=== PATIENT | female | born 1980 | race Caucasian/White ===

== ENCOUNTER → 2018-06-19 12:33 | Outpatient (CLI) | payer OTHER, SELFPAY | PROVIDERS: PCP Family Medicine; Visit Provider Obstetrics & Gynecology | DX: N93.9 Abnormal uterine and vaginal bleeding, unspecified (principal) | CPT/HCPCS: 36415; 80053; 81001; 85025; 86850; 86900; 86901; 87086 ==

== ENCOUNTER 2018-06-22 08:06 | Inpatient (IN) | payer OTHER, SELFPAY ==
[2018-06-19 08:49] VITALS: BMI 27.6
[2018-06-19 13:18] LABS: Add Manual Diff / Slide Review NO; Basophils Percent Auto 0.2 % (0-2); Eosinophils Percent Auto 2.5 % (2-4); Lymphocytes Percent Auto 25.6 % (25-40); Mean Corpuscular Hemoglobin 32.4 PG (26-34); Mean Corpuscular Volume 95.4 fL (80-100); Monocytes Percent Auto 5.6 % (3-14); Neutrophils Absolute Auto 6400 /uL (3000-5900); Neutrophils Percent Auto 66.1 % (50-75); Platelet Count 339 X10^3/uL (150-400); Red Blood Cell Count 4.93 X10^6/uL (4.0-5.2); Red Cell Distribution Width 12.6 % (11.6-14.8); White Blood Cell Count 9.8 X10^3/uL (4.5-11.0)
[2018-06-19 13:35] LABS: Alanine Aminotransferase 23 IU/L (9-52); Albumin 4.6 g/dL (3.5-5.0); Albumin Globulin Ratio 1.3 (1.0-2.8); Alkaline Phosphatase 73 U/L (38-126); Aspartate Aminotransferase 21 IU/L (14-36); BUN Creatinine Ratio 15.6 (6-22); Blood Urea Nitrogen 14 mg/dL (7-17); Calcium 9.9 mg/dL (8.4-10.2); Carbon Dioxide 30 mmol/L (22-32); Chloride 100 mmol/L (98-107); Estimated Glomerular Filt Rate > 60.0 mL/min (>60); Globulin 3.5 g/dL (1.7-4.1); Glucose 111 mg/dL (70-100); HEMOLYSIS < 15 (0-50); Potassium 3.6 mmol/L (3.4-5.1); Sodium 142 mmol/L (137-145); Total Protein 8.1 g/dL (6.3-8.2)
[2018-06-19 13:38] LABS: Appearance Urine UA CLEAR; Bilirubin Urine UA NEGATIVE (NEGATIVE); Color Urine UA YELLOW; Glucose Urine UA NEGATIVE (Normal); Ketones Urine UA TRACE (NEGATIVE); Leukocyte Esterase Urine UA NEGATIVE (NEGATIVE); Nitrite Urine UA Negative (Negative); Occult Blood Urine UA 3+ (Negative); Protein Urine UA NEGATIVE (Negative); Specific Gravity Urine UA 1.025 (1.000-1.035); Urobilinogen Urine UA 0.2 E.U./dL (0.2); pH Urine UA 5.5 (4.5-8.0)
[2018-06-19 14:00] LABS: Bacteria Urine Many (>30); RBC Urine 1-5/HPF (0-5/HPF); Squamous Epithelial Cell Urine 10-30 /HPF; WBC Urine 0-1/HPF (0-5/HPF)
[2018-06-19 14:01] LABS: Urine Comments CULTURE ORDERED
[2018-06-22] VITALS (16 sets, daily range): BP systolic 95–121; BP diastolic 54–78; PULSE 54–94; RESP 11–21; TEMP 36.1–36.9; O2SAT 94–99; BMI 27.6
[2018-06-22] MEDS: LACTATED RINGERS 1,000 ML 42 ML IV ×2 (09:45→12:50)
--- NOTE | 2018-06-22 11:10 | PM.PREOP ---
Pre-operative Note Interval Note Pre-op Check: Yes History & Physical Reviewed by Physician Changes: No
[2018-06-22] MEDS: CEFAZOLIN 2 GM/100 ML FROZ.PIGGY IV (11:45)
--- NOTE | 2018-06-22 12:22 | SUR.OPER ---
Lithotomy on padded OR bed. Athena Pad Positioner under torso. Head on pillow, arms padded and tucked at sides. Legs secured in padded yellow fins stirrups.
[2018-06-22] MEDS: BUPIVACAINE 0.25% (PF) VIAL 30 ML INJ (12:37)
[2018-06-22] MEDS: LIDOCAINE 1% W/EPI INJ 4 ML INJ (12:38)
[2018-06-22] MEDS: ACETAMINOPHEN IV 1,000 MG/100 ML VIAL 400 MG IV (13:38)
--- NOTE | 2018-06-22 14:42 | PM.GYNOP.1 ---
Operative Date/Time/Diagnoses Date of procedure: 06/22/18 Time of procedure: 12:30 Pre-op diagnosis: Abnormal uterine bleeding Post-op diagnosis: other (Abnormal uterine bleeding, endometriosis) Procedure: Procedures Operation Date: 06/22/18 09:45 Actual Procedures Side Surgeon olivia CARVER w/Bilat Salpingectomy, Removal Nexplanon, cystoscopy Harini Cummins MD Indications: Patient is a 38 yo 0 here for hysterectomy for definitive surgical management of abnormal uterine bleeding. She has tried medical therapy, which has been ineffective. She desires no future child-bearing and wishes to have a hysterectomy. Pelvic ultrasound was normal. We discussed the alternatives, risks, benefits, limitations, and expectations of surgery, and consent was reviewed and signed prior to surgery. Surgeon: Harini Cummins Supervisor Telephone Information: Antione Osorio Anesthesia Type: General and Local (0.25% Marcaine, plain; 1% Lidocaine with epi) Operative Notes Findings: Exam Under Anesthesia: Uterus anteverted and six weeks in size, fairly mobile. No adnexal masses palpable. Operative Findings: Filmy bowel adhesions of large bowel to right flank peritoneum and left lower quadrant, just lateral to the left IP. Scattered endometriosis lesions seen within both ovarian fossae and anteriorly at the lower uterine segment and bladder. The right fallopian tube and ovary were normal in appearance. The left fallopian tube was normal in appearance, and the left ovary was enlarged with an approximately 1-1/2 to 2 cm simple-appearing cyst. The liver edge and appendix were visualized and also appeared normal. Cystoscopy: Bladder mucosa appeared normal. Ureteral orifices were seen bilaterally, and clear urine noted to jet easily. There was no evidence of any injury to the bladder or ureters. Closure Type: primary Specimen(s): left tube, right tube and uterus (Uterus and cervix) Applied: catheter Estimated blood loss (mL): 20 Blood products transfused: none Procedure in detail: The patient was taken to the operating room, where general endotracheal anesthesia was administered without complications. The patient was placed into the low dorsal lithotomy position with her lower extremities in Yellofin stirrups. Exam under anesthesia was then performed with the findings noted above. Perineum, vagina, and abdomen were then prepped and draped in a sterile fashion. A Bales catheter was then placed. Procedure time-out was then performed. Attention was first turned to the perineum for placement of the uterine manipulator. A sterile bivalve speculum was inserted into the vagina, then the anterior lip of the cervix was grasped with a single-tooth tenaculum. The cervix was then serially dilated using Varun dilators until a ZUMI uterine manipulator could be advanced. The balloon was inflated, then the tenaculum and speculum removed from the vagina. Local anesthetic was then injected infraumbilically using 0.25% Marcaine. A vertical skin incision was then made with a scalpel below the umbilicus measuring approximately 7 mm in length. The abdominal wall was then grasped and tented up while a Veress needle was inserted through the incision. Saline drop test was suggestive of intraperitoneal placement. Carbon dioxide gas insufflation was then performed with appropriate opening pressures noted. After instilling approximately 2 L of carbon dioxide, a 5 mm 0 degree laparoscope within a 5 mm trocar was inserted through the anterior layers of the abdominal wall using Optiview technique. The abdomen and pelvis were visualized with the findings as noted above. The patient was placed into Trendelenburg position for better visualization. A second and third trocar was inserted at the patient's lower quadrants. These were done by first instilling local anesthetic, then incising the skin and inserting a 5 mm trocar under direct visualization using the laparoscopic. An atraumatic grasper was then utilized to manipulate the tissue and improve visualization throughout the pelvis. Gentle traction was then applied on the left distal fallopian tube which was pulled medially and superiorly. The left tubo-ovarian pedicle was then cross-clamped, cauterized, and cut using the PlasmaKinetic, and the left mesosalpinx dissected to separate the left tube from the ovary. The left round ligament was then cross clamped, cauterized, and cut. The anterior leaf of the broad ligament was undermined with the PlasmaKinetic and the left aspect of the bladder flap created using Bovie cautery. The left utero-ovarian pedicle was then cross clamped, cauterized, and cut, freeing the left ovary from the uterus. Some residual para uterine tissue was freed with Bovie cautery and gentle traction, skeletonizing the left uterine vessels. The left uterine vein and artery were then cross clamped, cauterized, and cut, and additional cautery applied as needed to achieve hemostasis. Attention was then turned to the patient's right adnexa. The right distal fallopian tube was grasped and tented up while the right tubo-ovarian pedicle was cross clamped, cauterized, and cut. This incision was then extended and medially across the right mesosalpinx. The right round ligament was then cross clamped, cauterized, and cut and the right anterior leaf of the broad ligament was undermined with the PlasmaKinetic to create the right side of the bladder flap using Bovie cautery. This incision was extended to the midline, meeting the dissection from the left. The right utero-ovarian pedicle was cross clamped, cauterized, and cut, freeing the right ovary from the uterus. The right uterine vessels were then skeletonized, cross clamped cauterized, and cut. Additional cautery was applied as needed to achieve hemostasis. The pelvis was then irrigated and suctioned. Once hemostasis was ensured attention was turned to the perineum for the vaginal portion of the case. Instruments were removed from the abdomen, leaving the trocars in place. The majority of the carbon dioxide gas was allowed to escape. The uterine manipulator was removed. A sterile weighted speculum was placed in the posterior vagina and a Amor placed in the anterior vagina. The cervix was grasped with double tooth tenaculum, then 1% lidocaine with epinephrine was injected circumferentially for hydrodissection and hemostasis. A circumferential incision was then made around the cervix with Bovie cautery. Using blunt dissection with the inserting press operator's finger the vaginal mucosa was gently pushed back off the cervix better visualizing the plane for the anterior-posterior peritoneal entry. The posterior peritoneum was grasped and incised sharply using Metzenbaum scissors. The Auvard speculum was then inserted into the posterior peritoneum. The anterior peritoneum could not be entered readily; therefore, the left uterosacral ligament was cross clamped, cut, then suture ligated with 0 Vicryl suture in a Elda stitch fashion. This was tagged for later identification. This step was then performed at the right uterosacral ligament. The anterior peritoneum was then bluntly entered using push with the inserting press operator's finger and a moistened lap sponge. The Amor was then replaced. The right cardinal and inferior uterine vessels were then cross clamped with the Elda clamp cut and suture ligated with an 0 Vicryl suture. This step was then performed on the patient's left cardinal and uterine vessels as well. Two additional pedicles were taken on each side, then the uterus and bilateral fallopian tubes were removed through the vagina. The pedicles were inspected. Some residual bleeding inferior and posterior to the right uterosacral pedicle was controlled with Bovie cautery. Some bleeding at the left uterosacral pedicle was controlled with a gekzbc-[id number]-uwzcn suture at the base of the pedicle. The peritoneum was then closed with a pursestring suture of 0 Vicryl, starting anteriorly at the bladder peritoneum, including both uterosacral ligaments, and skiving across the posterior peritoneum. This was tied down the vagina was then irrigated with sterile saline. The vaginal mucosa was then closed with serial jgvvbb-ls-apjcr sutures of 0 Vicryl, and a sponge-stick placed in the vagina. Carbon dioxide gas was then reinflated into the abdomen. The cuff was irrigated and suctioned. Some residual bleeding at the right aspect of the cuff was controlled with a small amount of Bovie cautery. The ovaries and adhesion dissection areas were examined and no residual bleeding was noted. The pelvis was again irrigated and suctioned. The ureter was visualized on the patient's right side but could not be easily seen on the patient's left side. Therefore, the decision was made to perform a diagnostic cystoscopy to ensure that the left ureter did not sustain injury during the case. It was felt the risk of this was low enough that the laparoscopic portion could be completed before performing the cystoscopy. The carbon dioxide gas was allowed to escape and the trocars removed from the abdomen. The trocar sites were then closed with 4-0 Monocryl in a subcuticular fashion. Exofin skin glue was then applied. The sponge-stick was then removed from the vagina. Attention was turned to the perineum, where the Bales catheter was temporarily removed. A 70 degree cystoscope was then inserted into the urethral meatus. Using sterile saline for distention, the bladder was visualized with findings as noted above. Clear urine was noted to efflux from both ureteral orifices. The cystoscopy fluid was then allowed to drain, and the Bales catheter was replaced into the bladder with the balloon inflated. Attention was then turned to removal of the Nexplanon from the patient's left extremity. The device was palpable in the subcutaneous tissue. The area was cleansed with Betadine; then, while applying pressure on the proximal end of the Nexplanon device, 0.25% Marcaine with epinephrine was injected beneath the distal tip of the device. A stab incision was then made with a 11 blade scalpel. The distal aspect of the Nexplanon was then grasped with a mosquito clamp and easily removed. The incision was then closed with exophytic skin glue, and dressed with a 4 x 4 followed by a pressure bandage. At this point the procedure was deemed complete. Sponge, lap, and needle count were correct x3. The patient was subsequently awakened, extubated, and transferred to the PACU in stable condition. Complications: none Post-operative Condition: stable Disposition: Acute Care
--- NOTE | 2018-06-22 14:48 | SUR.PHASEI ---
stable pacu stay, awaiting report to be over for transfer.
--- NOTE | 2018-06-22 15:03 | P.OP_ITS ---
Operative Date/Time/Diagnoses Date of procedure: 06/22/18 Time of procedure: 12:30 Pre-op diagnosis: Abnormal uterine bleeding Post-op diagnosis: other (Abnormal uterine bleeding, endometriosis) Procedure: Procedures Operation Date: 06/22/18 09:45 Actual Procedures Side Surgeon olivia CARVER w/Bilat Salpingectomy, Removal Nexplanon, cystoscopy Harini Cummins MD Indications: Patient is a 38 yo 0 here for hysterectomy for definitive surgical management of abnormal uterine bleeding. She has tried medical therapy , which has been ineffective. She desires no future child-bearing and wishes to have a hysterectomy. Pelvic ultrasound was normal. We discussed the alternatives, risks, benefits, limitations, and expectations of surgery, and consent was reviewed and signed prior to surgery. Surgeon: Harini Cummins Orthopedics Nurse: Antione Osorio Anesthesia Type: General and Local (0.25% Marcaine, plain; 1% Lidocaine with epi ) Operative Notes Findings: Exam Under Anesthesia: Uterus anteverted and six weeks in size, fairly mobile. No adnexal masses palpable. Operative Findings: Filmy bowel adhesions of large bowel to right flank peritoneum and left lower quadrant, just lateral to the left IP. Scattered endometriosis lesions seen within both ovarian fossae and anteriorly at the lower uterine segment and bladder. The right fallopian tube and ovary were normal in appearance. The left fallopian tube was normal in appearance, and the left ovary was enlarged with an approximately 1-1/2 to 2 cm simple- appearing cyst. The liver edge and appendix were visualized and also appeared normal. Cystoscopy: Bladder mucosa appeared normal. Ureteral orifices were seen bilaterally, and clear urine noted to jet easily. There was no evidence of any injury to the bladder or ureters. Closure Type: primary Specimen(s): left tube, right tube and uterus (Uterus and cervix) Applied: catheter Estimated blood loss (mL): 20 Blood products transfused: none Procedure in detail: The patient was taken to the operating room, where general endotracheal anesthesia was administered without complications. The patient was placed into the low dorsal lithotomy position with her lower extremities in Yellofin stirrups. Exam under anesthesia was then performed with the findings noted above. Perineum, vagina, and abdomen were then prepped and draped in a sterile fashion. A Bales catheter was then placed. Procedure time-out was then performed. Attention was first turned to the perineum for placement of the uterine manipulator. A sterile bivalve speculum was inserted into the vagina, then the anterior lip of the cervix was grasped with a single-tooth tenaculum. The cervix was then serially dilated using Varun dilators until a ZUMI uterine manipulator could be advanced. The balloon was inflated, then the tenaculum and speculum removed from the vagina. Local anesthetic was then injected infraumbilically using 0.25% Marcaine. A vertical skin incision was then made with a scalpel below the umbilicus measuring approximately 7 mm in length. The abdominal wall was then grasped and tented up while a Veress needle was inserted through the incision. Saline drop test was suggestive of intraperitoneal placement. Carbon dioxide gas insufflation was then performed with appropriate opening pressures noted. After instilling approximately 2 L of carbon dioxide, a 5 mm 0 degree laparoscope within a 5 mm trocar was inserted through the anterior layers of the abdominal wall using Optiview technique. The abdomen and pelvis were visualized with the findings as noted above. The patient was placed into Trendelenburg position for better visualization. A second and third trocar was inserted at the patient' s lower quadrants. These were done by first instilling local anesthetic, then incising the skin and inserting a 5 mm trocar under direct visualization using the laparoscopic. An atraumatic grasper was then utilized to manipulate the tissue and improve visualization throughout the pelvis. Gentle traction was then applied on the left distal fallopian tube which was pulled medially and superiorly. The left tubo-ovarian pedicle was then cross- clamped, cauterized, and cut using the PlasmaKinetic, and the left mesosalpinx dissected to separate the left tube from the ovary. The left round ligament was then cross clamped, cauterized, and cut. The anterior leaf of the broad ligament was undermined with the PlasmaKinetic and the left aspect of the bladder flap created using Bovie cautery. The left utero-ovarian pedicle was then cross clamped, cauterized, and cut, freeing the left ovary from the uterus. Some residual para uterine tissue was freed with Bovie cautery and gentle traction, skeletonizing the left uterine vessels. The left uterine vein and artery were then cross clamped, cauterized, and cut, and additional cautery applied as needed to achieve hemostasis. Attention was then turned to the patient's right adnexa. The right distal fallopian tube was grasped and tented up while the right tubo-ovarian pedicle was cross clamped, cauterized, and cut. This incision was then extended and medially across the right mesosalpinx. The right round ligament was then cross clamped, cauterized, and cut and the right anterior leaf of the broad ligament was undermined with the PlasmaKinetic to create the right side of the bladder flap using Bovie cautery. This incision was extended to the midline, meeting the dissection from the left. The right utero-ovarian pedicle was cross clamped, cauterized, and cut, freeing the right ovary from the uterus. The right uterine vessels were then skeletonized, cross clamped cauterized, and cut. Additional cautery was applied as needed to achieve hemostasis. The pelvis was then irrigated and suctioned. Once hemostasis was ensured attention was turned to the perineum for the vaginal portion of the case. Instruments were removed from the abdomen , leaving the trocars in place. The majority of the carbon dioxide gas was allowed to escape. The uterine manipulator was removed. A sterile weighted speculum was placed in the posterior vagina and a Amor placed in the anterior vagina. The cervix was grasped with double tooth tenaculum, then 1% lidocaine with epinephrine was injected circumferentially for hydrodissection and hemostasis. A circumferential incision was then made around the cervix with Bovie cautery. Using blunt dissection with the turret punch operator's finger the vaginal mucosa was gently pushed back off the cervix better visualizing the plane for the anterior- posterior peritoneal entry. The posterior peritoneum was grasped and incised sharply using Metzenbaum scissors. The Auvard speculum was then inserted into the posterior peritoneum. The anterior peritoneum could not be entered readily ; therefore, the left uterosacral ligament was cross clamped, cut, then suture ligated with 0 Vicryl suture in a Elda stitch fashion. This was tagged for later identification. This step was then performed at the right uterosacral ligament. The anterior peritoneum was then bluntly entered using push with the turret punch operator's finger and a moistened lap sponge. The Vernon was then replaced. The right cardinal and inferior uterine vessels were then cross clamped with the Elda clamp cut and suture ligated with an 0 Vicryl suture. This step was then performed on the patient's left cardinal and uterine vessels as well. Two additional pedicles were taken on each side, then the uterus and bilateral fallopian tubes were removed through the vagina. The pedicles were inspected. Some residual bleeding inferior and posterior to the right uterosacral pedicle was controlled with Bovie cautery. Some bleeding at the left uterosacral pedicle was controlled with a dszfcq-gx-sakpt suture at the base of the pedicle. The peritoneum was then closed with a pursestring suture of 0 Vicryl, starting anteriorly at the bladder peritoneum, including both uterosacral ligaments, and skiving across the posterior peritoneum. This was tied down the vagina was then irrigated with sterile saline. The vaginal mucosa was then closed with serial smwgmr-[id number] sutures of 0 Vicryl, and a sponge-stick placed in the vagina. Carbon dioxide gas was then reinflated into the abdomen. The cuff was irrigated and suctioned. Some residual bleeding at the right aspect of the cuff was controlled with a small amount of Bovie cautery. The ovaries and adhesion dissection areas were examined and no residual bleeding was noted. The pelvis was again irrigated and suctioned. The ureter was visualized on the patient's right side but could not be easily seen on the patient's left side. Therefore, the decision was made to perform a diagnostic cystoscopy to ensure that the left ureter did not sustain injury during the case. It was felt the risk of this was low enough that the laparoscopic portion could be completed before performing the cystoscopy. The carbon dioxide gas was allowed to escape and the trocars removed from the abdomen. The trocar sites were then closed with 4-0 Monocryl in a subcuticular fashion. Exofin skin glue was then applied. The sponge-stick was then removed from the vagina. Attention was turned to the perineum, where the Bales catheter was temporarily removed. A 70 degree cystoscope was then inserted into the urethral meatus. Using sterile saline for distention, the bladder was visualized with findings as noted above. Clear urine was noted to efflux from both ureteral orifices. The cystoscopy fluid was then allowed to drain, and the Bales catheter was replaced into the bladder with the balloon inflated. Attention was then turned to removal of the Nexplanon from the patient's left extremity. The device was palpable in the subcutaneous tissue. The area was cleansed with Betadine; then, while applying pressure on the proximal end of the Nexplanon device, 0.25% Marcaine with epinephrine was injected beneath the distal tip of the device. A stab incision was then made with a 11 blade scalpel. The distal aspect of the Nexplanon was then grasped with a mosquito clamp and easily removed. The incision was then closed with exophytic skin glue , and dressed with a 4 x 4 followed by a pressure bandage. At this point the procedure was deemed complete. Sponge, lap, and needle count were correct x3. The patient was subsequently awakened, extubated, and transferred to the PACU in stable condition. Complications: none Post-operative Condition: stable Disposition: Acute Care
[2018-06-22] MEDS: hydrOXYzine pamoate 25 MG CAPSULE PO (15:28)
[2018-06-22] MEDS: LACTATED RINGERS 1,000 ML 100 ML IV (16:21)
[2018-06-22] MEDS: OXYCODONE/ACETAMINOPHEN 5/325 TABLET 2 TAB PO ×2 (16:58→22:00)
[2018-06-22] MEDS: DOCUSATE 250 MG CAPSULE PO (22:00)
--- NOTE | 2018-06-22 22:41 | PATH_ITS ---
Patient Report [id number] Control [facility]: [facility] PATHOLOGY ONLY [id number] [address] [facility] [address] Patient Details ALIX LEACH : 1980 Age(y/m/d): Gender: F SSN: Specimen Details Date collected: 06/22/2018 224 Local Date received: 06/22/2018 Date entered: 06/22/2018 Date reported: 06/24/2018 1608 ET Physician Details Ordering: Milton GUADARRAMA Referring: ID: Additional Information: Clinical Info: [id number] Tests Ordered: Pathology Report Clinician Provided ICD Code(s) & Clinical History: Material Submitted: (01) UTERUS AND BILATERAL FALLOPIAN TUBES Diagnosis: (02) Uterus with Bilateral Fallopian Tubes: Minimally proliferative endometrium with changes of glandular and stromal breakdown, negative for atypia. Fallopian tubes unremarkable. MRV/06/24/2018 Pathologist Provided ICD Code(s): (02) N93.9 CPT Codes: (02 [id number] Gross Description: (01) Received in formalin, labeled uterus and bilateral tubes, is a uterus (69 grams , 3.5 cm AP, 8.9 cm SI, 4.5 cm ML) with attached fimbriated fallopian tubes (right: length-5.4 cm, diameter-0.4 cm; left: length-5.5 cm, diameter-0.5 cm). The ovaries are absent. The cervix (1.7 cm AP, 2.5 cm ML) has a transverse os and patent endocervical canal. The endometrium (average thickness-0.1 cm) is olmos-pink smooth and flat. The myometrium (thickness-1.7 cm) is olmos-white and unremarkable. The serosa is pale maroon smooth and shiny. The fallopian tubes have dark maroon smooth shiny serosa and olmos unremarkable lumens. Section code: (A1) anterior cervix; (A2) posterior cervix; (A3, A4) anterior endomyometrium; (A5, a6) posterior endomyometrium; (A7) right fallopian tube, residential sales representative serial sections; (A8) right fimbria, bivalved, entirely submitted; (A9) left fallopian tube, residential sales representative serial sections; (A10) left fimbria, bivalved, entirely submitted. ([id number]) /MRV Comments: ACC: [id number] PID: [id number] Electronically signed by (02) Aiden Lamar MD, Pathologist NPI- [id number]
[2018-06-23] MEDS: OXYCODONE/ACETAMINOPHEN 5/325 TABLET 2 TAB PO ×3 (01:58→16:12)
[2018-06-23] MEDS: LACTATED RINGERS 1,000 ML 100 ML IV (01:59)
[2018-06-23 03:03] VITALS: O2SAT 98
[2018-06-23 05:22] VITALS: BP 104/66; PULSE 54; RESP 16; TEMP 36.4; O2SAT 100
[2018-06-23 05:32] LABS: Add Manual Diff / Slide Review NO; Basophils Percent Auto 0.1 % (0-2); Eosinophils Percent Auto 0.2 % (2-4); Hematocrit 34.2 % (36-46); Hemoglobin 11.6 g/dL (12.0-16.0); Lymphocytes Percent Auto 12.3 % (25-40); Mean Corpuscular HGB Conc 33.9 % (30-36); Mean Corpuscular Hemoglobin 32.3 PG (26-34); Mean Corpuscular Volume 95.5 fL (80-100); Monocytes Percent Auto 6.4 % (3-14); Neutrophils Absolute Auto 12300 /uL (3000-5900); Platelet Count 273 X10^3/uL (150-400); Red Blood Cell Count 3.58 X10^6/uL (4.0-5.2); Red Cell Distribution Width 12.5 % (11.6-14.8); White Blood Cell Count 15.2 X10^3/uL (4.5-11.0)
[2018-06-23 05:39] LABS: BUN Creatinine Ratio 16.7 (6-22); Blood Urea Nitrogen 15 mg/dL (7-17); Carbon Dioxide 28 mmol/L (22-32); Chloride 105 mmol/L (98-107); Estimated Glomerular Filt Rate > 60.0 mL/min (>60); Glucose 117 mg/dL (70-100); HEMOLYSIS < 15 (0-50); Potassium 4.5 mmol/L (3.4-5.1); Sodium 138 mmol/L (137-145)
[2018-06-23 07:30] VITALS: BP 99/60; PULSE 58; RESP 16; TEMP 36.5; O2SAT 99
[2018-06-23] MEDS: KETOROLAC 30 MG/ML VIAL IV ×2 (07:49→13:26)
--- NOTE | 2018-06-23 09:17 | PC.NURSE ---
Day Shift Note: Patient doing well this am, tolerating pain. Discussed pain medication options with patient to get better relief. Bales discontinued per orders, iv saline locked. Patient hoping to go home later today. no acute distress, will continue to monitor.
[2018-06-23] MEDS: DOCUSATE 250 MG CAPSULE PO (10:14)
[2018-06-23] MEDS: SIMETHICONE 80 MG TABLET PO (10:14)
[2018-06-23 11:35] VITALS: BP 106/65; PULSE 59; RESP 16; TEMP 36.4; O2SAT 99
[2018-06-23] MEDS: MORPHINE 4 MG/ML INJ IV ×2 (13:11→13:28)
[2018-06-23] MEDS: METOCLOPRAMIDE 10 MG/2 ML INJ IV (13:14)
--- NOTE | 2018-06-23 15:21 | P.PN_ITS ---
Subjective Date Patient Seen: 06/23/18 Time Patient Seen: 15:15 Interval history: The patient had no acute events overnight. However, she has had issues with pain control. Toradol was not continued as ordered overnight. Her nurse during the day today did restart this morning. She has also been administering the Percocet every 4 hr as ordered; however, the patient tends to have increased pain again after approximately 2 hr. She did require a single dose of IV morphine this afternoon. Bales catheter was removed this morning, and she has voided without problems. Appetite is good, and she is tolerating regular diet with no nausea or vomiting. She is passing flatus. She is uncertain if she feels ready for discharge home today given her pain control issues. Exam Vital Signs (past 8 hours): - 06/23/18 07:30 06/23/18 11:35 Temperature 97.7 F 97.6 F Pulse Rate 58 L 59 L Respiratory Rate 16 16 Blood Pressure 99/60 106/65 Pulse Oximetry 99 99 Oxygen Delivery Method Room Air Narrative Exam Narrative: General: Lying in bed, sleepy but in no apparent distress. She is arousable with verbal cues. Lungs: Clear to auscultation bilaterally with no wheezes or crackles. Heart: Regular rate and rhythm with no murmurs, rubs, or gallops. Abdomen: Soft, appropriately tender, mildly distended, and bowel sounds heard throughout. Incisions: Laparoscopy incisions well approximated x3. No erythema, separation , or discharge. Left upper extremity incision is also well approximated. Dressing removed, and Steri-Strip is intact. Extremities: Warm and well perfused with no clubbing, cyanosis, or edema. Objective Labs Result Diagrams: 06/23/18 05:02 06/23/18 05:02 Labs: Laboratory Results - last 24 hr 06/22/18 06/23/18 06/23/18 12:45 05:02 05:02 WBC 15.2 H RBC 3.58 L Hgb 11.6 L Hct 34.2 L MCV 95.5 MCH 32.3 MCHC 33.9 RDW 12.5 Plt Count 273 Neut % (Auto) 81.0 H Lymph % (Auto) 12.3 L [place] % (Auto) 6.4 Eos % (Auto) 0.2 L Baso % (Auto) 0.1 Neut # (Auto) 16881 H Sodium 138 Potassium 4.5 Chloride 105 Carbon Dioxide 28 BUN 15 Creatinine 0.90 Estimated GFR > 60.0 BUN/Creatinine Ratio 16.7 Glucose 117 H Calcium 9.0 Urine Test Cancelled Assessment & Plan Post-op Postoperative Procedures Operation Date: 06/22/18 09:45 Actual Procedures Side Surgeon olivia CARVER w/Bilat Salpingectomy, Removal Nexplanon, cystoscopy Harini Cummins MD Postoperative day: 1 Postoperative status: doing well and marginal pain control Postoperative status narrative: Pain control is limited by acetaminophen dosing in the Percocet. Postoperative plan: routine post-op care and discharge Postoperative plan narrative: Will attempt additional pain management with oxycodone 5 mg orally in addition to Percocet q.4 hours. If the patient is meeting discharge criteria later today, will consider discharge to home. Reviewed discharge instructions in case of discharge home today. Time Spent With Patient less than 15 minutes Quality VTE Deep Vein Thrombosis/Pulmonary Embolism Present on Admission: No
[2018-06-23 15:56] VITALS: BP 106/59; PULSE 58; RESP 18; TEMP 36.4; O2SAT 99
[2018-06-23] MEDS: OXYCODONE IR 5 MG TABLET PO (16:12)
== END 2018-06-23 17:15 | disposition home or self-care (01) | DRG 743 ==
PROVIDERS: Admitting Provider Obstetrics & Gynecology; PCP Family Medicine; Visit Provider Obstetrics & Gynecology
PROC: 0UT9FZZ Resection of Uterus, Via Natural or Artificial Opening With Percutaneous Endoscopic Assistance (ICD-10-PCS; principal; 2018-06-22 09:45)
DX: N93.9 Abnormal uterine and vaginal bleeding, unspecified (principal); F17.210 Nicotine dependence, cigarettes, uncomplicated; N80.1 Endometriosis of ovary; N80.0 Endometriosis of uterus; N80.8 Other endometriosis; Z30.8 Encounter for other contraceptive management
CPT/HCPCS: 36415; 80048; 85025; 88307; J0131; J0330; J0690; J1100; J1885; J2250; J2270; J2405; J2704; J2765; J3010

== ENCOUNTER 2019-01-24 12:56 | Emergency (ER) | payer OTHER, SELFPAY ==
[2018-06-22 15:50] VITALS: BMI 27.6
[2019-01-24 13:13] VITALS: BP 122/82; PULSE 78; RESP 18; TEMP 36.7; O2SAT 98; BMI 27.3
--- NOTE | 2019-01-24 14:52 | ED.UPPEXIN ---
HPI - Extremity Injury (Upper) <KACIE Castro - Last Filed: 01/24/19 16:55> General Chief Complaint: Extremity Injury, Upper Stated Complaint: Pain in left arm/shoulder,swollen feet Time Seen by Provider: 01/24/19 14:48 Source: patient Mode of arrival: ambulatory Limitations: no limitations History of Present Illness HPI narrative: pt says that today she had sudden onset of L arm pain and the pain goes down her arm into her hand and her hand feels tingling, and pain extends from upper arm to L shouder and upper chest area, denies any actual cp, trouble breathing, denies any injury/trauma, denies any trouble moving arm but movement does increase the pain, also noted that both feet were slightly swollen MD complaint: injury to: arm Onset (ago): day(s) Other Extremity Injury: Left: arm Other injuries: none Handedness: right Severity: mild Relieving factors: none Exacerbating factors: movement of extremity Associated symptoms: denies other symptoms Related Data Home Medications Medication Instructions Recorded Confirmed docusate calcium 1 cap PO BID 06/22/18 06/22/18 ibuprofen 1 tab PO TID PRN 06/22/18 06/22/18 oxycodone-acetaminophen 1 tab PO DIRECTED PRN 06/22/18 06/22/18 Previous Rx's Medication Instructions Recorded tramadol [Ultram] 50 mg PO Q6H PRN #12 tab 01/24/19 Allergies Allergy/AdvReac Type Severity Reaction Status Date / Time coconut Allergy Unknown Hives, Verified 01/24/19 13:19 swelling Review of Systems <KACIE Castro - Last Filed: 01/24/19 16:55> Review of Systems ROS Unobtainable: All systems reviewed & are unremarkable except as noted in HPI and below Constitutional Reports as per HPI and Reports system reviewed and no additional complaints, except as docu ENT Ears, Nose, Mouth, and Throat: Denies neck pain Cardiovascular Denies chest pain, Denies diaphoresis, Denies irregular heart rhythm, Denies claudication, Reports leg edema, Denies lightheadedness and Denies dyspnea Respiratory Denies dyspnea Musculoskeletal Reports as per HPI, Denies abnormal gait, Denies back pain, Denies deformity, Denies joint swelling, Denies limited range of motion, Denies muscle weakness, Denies neck pain, Denies numbness, Reports radiating pain into limb and Reports tingling Integumentary/Breasts Reports as per HPI, Denies erythema, Denies unusual bruising and Denies wounds Neurologic Denies abnormal gait, Denies numbness and Reports tingling Hematologic/Lymphatic Reports as per HPI, Denies easy bleeding and Denies easy bruising PFSH <KACIE Castro - Last Filed: 01/24/19 16:55> Medical History Abnormal uterine bleeding (Acute) Acne (Acute) Anxiety (Acute) Bilateral hip pain (Acute) History of seizure (Acute) History of smoking (Acute) Hypercholesterolemia (Acute) Hyperlipoproteinemia (Acute) Impacted cerumen (Acute) Inflammation of sacroiliac joint (Acute) Low back pain (Acute) Recurrent UTI (Acute) Skin tag (Acute) Tobacco use (Acute) Urinary tract infection (Acute) Surgical History H/O radiofrequency ablation for complex left atrial arrhythmia (Acute ~2008) History of breast augmentation (Acute ~2008) History of excision of pilonidal cyst (Acute ~2011) History of tonsillectomy (Acute ~1994) Social History household members: spouse Smoking Status: Current every day smoker alcohol intake: current Social History household members: spouse Smoking Status: Current every day smoker alcohol intake: current Exam <KACIE Castro - Last Filed: 01/24/19 16:55> Initial Vital Signs Initial Vital Signs: Vital Signs Temperature 98.1 F 01/24/19 13:13 Pulse Rate 78 01/24/19 13:13 Respiratory Rate 18 01/24/19 13:13 Blood Pressure 122/82 01/24/19 13:13 Pulse Oximetry 98 01/24/19 13:13 Const General: cooperative, healthy appearing, comfortable, well developed and well groomed Nutritional Appearance: average body habitus Orientation: alert, awake and oriented x3 HENMT Head: normal to inspection and normocephalic Ears: hearing grossly normal bilaterally, external ears normal, TM's normal bilaterally and mastoids normal Nose: external nose normal and nares normal Face and sinus: normal facial exam, sinuses nontender and face symmetric Mouth: oral mucosae normal, lip normal, tongue normal, oropharynx normal and moist mucous membranes Teeth and gingiva: dentition normal and gingiva normal Throat: posterior oropharynx normal, tonsils normal and uvula midline Eyes General: appearance normal, both eyes and all related structures Visual Antunez: normal visual antunez by confrontation Eyelids: eyelids normal Conjunctivae: conjunctivae normal Sclera: sclerae normal Pupils: PERRL EOM: EOM intact bilaterally Neck Neck: normal visual inspection, full ROM, no meningeal signs, trachea midline, supple and No lymphadenopathy Chest Chest: normal inspection of the chest Resp Effort & Inspection: normal respiratory effort and able to speak in complete sentences Auscultation: clear to auscultation bilaterally Cardio Rate: regular rate Rhythm: regular rhythm Heart Sounds: S1 normal and S2 normal Back/Spine/Pelvis Cervical Spine: cervical ROM normal Thoracic/Lumbar Spine: thoraco-lumbar ROM normal Skin General: no rashes or lesions noted, elasticity normal, turgor normal and dry skin Neuro General: alert, awake, oriented x3 and meningeal signs present Cognition: normal cognition Speech: speech normal Gait: normal gait Motor: muscle tone normal throughout Sensory Exam: no sensory deficits noted Extrem General: normal to inspection and full ROM Right upper extremity: normal to inspection and full ROM Left upper extremity: full ROM, normal capillary refill and shoulder/upper arm (mild tenderness to upper arm); no cyanosis, no edema and joint enlargement noted Right lower extremity: normal to inspection and full ROM; no edema Left lower extremity: normal to inspection and full ROM; no edema Psych Appearance: grossly normal and well kempt Mental Status: mental status grossly normal Speech and Movement: speech and movement normal Mood: congruent mood Affect: normal affect Attitude: cooperative Thought Process: normal Thought Content: normal Judgment: judgment good <Josee Veronica DO - Last Filed: 01/25/19 10:43> Initial Vital Signs Initial Vital Signs: Vital Signs Temperature 98.1 F 01/24/19 13:13 Pulse Rate 78 01/24/19 13:13 Respiratory Rate 18 01/24/19 13:13 Blood Pressure 122/82 01/24/19 13:13 Pulse Oximetry 98 01/24/19 13:13 Course <KACIE Castro - Last Filed: 01/24/19 16:55> Course Narrative: 1640 results and dc plan discussed, pt's pain has decreased with meds here, agreed to rx something for pain and f/u with pcp Orders Ordered: Discontinued Medications Ketorolac Tromethamine (Toradol) 30 mg IV NOW ONE Stop: 01/24/19 14:57 Last Admin: 01/24/19 15:27 Dose: 30 mg Vital Signs - 8 hr 01/24/19 13:13 Temperature 98.1 F Pulse Rate 78 Respiratory Rate 18 Blood Pressure 122/82 Pulse Oximetry 98 <Josee Veronica DO - Last Filed: 01/25/19 10:43> Orders Ordered: Discontinued Medications Ketorolac Tromethamine (Toradol) 30 mg IV NOW ONE Stop: 01/24/19 14:57 Last Admin: 01/24/19 15:27 Dose: 30 mg Vital Signs - 8 hr 01/24/19 13:13 Temperature 98.1 F Pulse Rate 78 Respiratory Rate 18 Blood Pressure 122/82 Pulse Oximetry 98 MDM - Extremity Injury (Upper) <KACIE Castro - Last Filed: 01/24/19 16:55> Differential Diagnosis Differential diagnosis: Likely fracture of humerus and other (dvt, sprain, cardiac issues, muscle strain, chf, abscess) Lab Data Attestation: I reviewed the patient's lab results. Result diagrams: 01/24/19 15:10 01/24/19 15:10 Lab Results 01/24/19 01/24/19 01/24/19 Range/Units 15:10 15:10 15:10 WBC 11.9 H (4.5-11.0) X10^3/uL RBC 4.32 (4.0-5.2) X10^6/uL Hgb 13.5 (12.0-16.0) g/dL Hct 40.5 (36-46) % MCV 93.8 (80-100) fL MCH 31.4 (26-34) PG MCHC 33.5 (30-36) % RDW 13.6 (11.6-14.8) % Plt Count 256 (150-400) X10^3/uL Neut % (Auto) 74.3 (50-75) % Lymph % (Auto) 17.4 L (25-40) % [place] % (Auto) 6.3 (3-14) % Eos % (Auto) 1.4 L (2-4) % Baso % (Auto) 0.6 (0-2) % Neut # (Auto) 8900 H (2964-1693) /uL Lymph # (Auto) 2100 (2130-3037) /uL [place] # (Auto) 700 (0-900) /uL Eos # (Auto) 200 (0-450) /uL Baso # (Auto) 100 (0-100) /uL D-Dimer < 200 (<230) ng/mL Sodium 137 (137-145) mmol/L Potassium 3.8 (3.4-5.1) mmol/L Chloride 104 (98-107) mmol/L Carbon Dioxide 25 (22-32) mmol/L BUN 11 (7-17) mg/dL Creatinine 0.70 (0.52-1.04) mg/dL Estimated GFR > 60.0 (>60) mL/min BUN/Creatinine Ratio 15.7 (6-22) Glucose 82 (70-100) mg/dL Calcium 9.1 (8.4-10.2) mg/dL Total Bilirubin 0.6 (0.2-1.3) mg/dL AST 21 (14-36) IU/L ALT 17 (9-52) IU/L Alkaline Phosphatase 79 (38-126) U/L Total Creatine Kinase 79 (30-135) U/L CK-MB (CK-2) TNP CK-MB (CK-2) Rel Index TNP Troponin I < 0.012 (0.01-0.034) ng/mL B-Natriuretic Peptide < 100 (<100) Total Protein 7.5 (6.3-8.2) g/dL Albumin 4.3 (3.5-5.0) g/dL Globulin 3.2 (1.7-4.1) g/dL Albumin/Globulin Ratio 1.3 (1.0-2.8) Imaging Data Chest x-ray: Radiologist's impression: PROCEDURE: XR CHEST 2V INDICATIONS: cough TECHNIQUE: 2 views of the chest were acquired. COMPARISON: None. FINDINGS: Surgical changes and devices: None. Lungs and pleura: Lungs are clear. No pleural effusions or pneumothorax. Mediastinum: Mediastinal contours are normal. Heart size is normal. Bones and chest wall: No suspicious bony abnormalities. Soft tissues appear unremarkable. IMPRESSION: No acute process. Dictated by: Jodee Olmos M.D. on 01/24/2019 at 15:07 Approved by: Jodee Olmos M.D. on 01/24/2019 at 15:08 PROCEDURE: US EXTREMITY NONVASC UPPER LT INDICATIONS: LEFT ARM PAIN, TINGLING TECHNIQUE: Real-time scanning was performed of the left upper extremity, with image documentation. COMPARISON: None. FINDINGS: Deep veins of the left upper extremity are patent and compressible. IMPRESSION: No evidence of left upper extremity DVT. Dictated by: Jodee Olmos M.D. on 01/24/2019 at 16:32 Approved by: Jodee Olmos M.D. on 01/24/2019 at 16:34 ECG Data Attestation: I personally reviewed and interpreted this ECG as follows: Interpretation: ekg interpreted and reviewed by me and Dr García, NSR, HR 71, L axis deviation, no st changes or elevation <Josee Veronica, - Last Filed: 01/25/19 10:43> Lab Data Lab Results 01/24/19 01/24/19 01/24/19 Range/Units 15:10 15:10 15:10 WBC 11.9 H (4.5-11.0) X10^3/uL RBC 4.32 (4.0-5.2) X10^6/uL Hgb 13.5 (12.0-16.0) g/dL Hct 40.5 (36-46) % MCV 93.8 (80-100) fL MCH 31.4 (26-34) PG MCHC 33.5 (30-36) % RDW 13.6 (11.6-14.8) % Plt Count 256 (150-400) X10^3/uL Neut % (Auto) 74.3 (50-75) % Lymph % (Auto) 17.4 L (25-40) % [place] % (Auto) 6.3 (3-14) % Eos % (Auto) 1.4 L (2-4) % Baso % (Auto) 0.6 (0-2) % Neut # (Auto) 8900 H (8653-9667) /uL Lymph # (Auto) 2100 (4171-3422) /uL [place] # (Auto) 700 (0-900) /uL Eos # (Auto) 200 (0-450) /uL Baso # (Auto) 100 (0-100) /uL D-Dimer < 200 (<230) ng/mL Sodium 137 (137-145) mmol/L Potassium 3.8 (3.4-5.1) mmol/L Chloride 104 (98-107) mmol/L Carbon Dioxide 25 (22-32) mmol/L BUN 11 (7-17) mg/dL Creatinine 0.70 (0.52-1.04) mg/dL Estimated GFR > 60.0 (>60) mL/min BUN/Creatinine Ratio 15.7 (6-22) Glucose 82 (70-100) mg/dL Calcium 9.1 (8.4-10.2) mg/dL Total Bilirubin 0.6 (0.2-1.3) mg/dL AST 21 (14-36) IU/L ALT 17 (9-52) IU/L Alkaline Phosphatase 79 (38-126) U/L Total Creatine Kinase 79 (30-135) U/L CK-MB (CK-2) TNP CK-MB (CK-2) Rel Index TNP Troponin I < 0.012 (0.01-0.034) ng/mL B-Natriuretic Peptide < 100 (<100) Total Protein 7.5 (6.3-8.2) g/dL Albumin 4.3 (3.5-5.0) g/dL Globulin 3.2 (1.7-4.1) g/dL Albumin/Globulin Ratio 1.3 (1.0-2.8) Discharge Plan Departure Patient Disposition: Home Clinical Impression: Arm pain Qualifiers: Laterality: left Qualified Code(s): M79.602 - Pain in left arm Discharge Date/Time: 01/24/19 17:20 Interventions: ED Discharge Assessment Last Done: 01/24/19 17:19 Instructions: DI for Arm Pain Prescriptions: New tramadol [Ultram] 50 mg tablet 50 mg PO Q6H PRN (Reason: pain) Qty: 12 RF: 0 No Action ibuprofen 800 mg tablet 1 tab PO TID PRN (Reason: Pain, Moderate) RF: 0 docusate calcium 240 mg capsule 1 cap PO BID RF: 0 oxycodone-acetaminophen 5-325 mg tablet 1 tab PO DIRECTED PRN (Reason: Pain, Severe) RF: 0 Referrals: Radha Hugo MD [Primary Care Provider] - (follow up recommended in 3-5 days for continued pain/issues/concerns) <Josee Veronica DO - Last Filed: 01/25/19 10:43> Cosign ED Attending Cosignature Attestation: I was immediately available in the department for consultation. Documentation has been reviewed. I agree with assessment and plan.
--- NOTE | 2019-01-24 14:56 | DI.US.S_ITS ---
PROCEDURE: US EXTREMITY NONVASC UPPER LT INDICATIONS: LEFT ARM PAIN, TINGLING TECHNIQUE: Real-time scanning was performed of the left upper extremity, with image documentation. COMPARISON: None. FINDINGS: Deep veins of the left upper extremity are patent and compressible. IMPRESSION: No evidence of left upper extremity DVT. Dictated by: Jodee Olmos M.D. on 01/24/2019 at 16:32 Approved by: Jodee Olmos M.D. on 01/24/2019 at 16:34
--- NOTE | 2019-01-24 14:56 | DI.RAD.S_ITS ---
PROCEDURE: XR CHEST 2V INDICATIONS: cough TECHNIQUE: 2 views of the chest were acquired. COMPARISON: None. FINDINGS: Surgical changes and devices: None. Lungs and pleura: Lungs are clear. No pleural effusions or pneumothorax. Mediastinum: Mediastinal contours are normal. Heart size is normal. Bones and chest wall: No suspicious bony abnormalities. Soft tissues appear unremarkable. IMPRESSION: No acute process. Dictated by: Jodee Olmos M.D. on 01/24/2019 at 15:07 Approved by: Jodee Olmos M.D. on 01/24/2019 at 15:08
[2019-01-24] MEDS: KETOROLAC 60 MG/2 ML VIAL 30 MG IV (15:27)
[2019-01-24 15:32] LABS: Add Manual Diff / Slide Review NO; Basophils Absolute Auto 100 /uL (0-100); Basophils Percent Auto 0.6 % (0-2); Eosinophils Absolute Auto 200 /uL (0-450); Eosinophils Percent Auto 1.4 % (2-4); Hematocrit 40.5 % (36-46); Hemoglobin 13.5 g/dL (12.0-16.0); Lymphocytes Absolute Auto 2100 /uL (1100-4500); Lymphocytes Percent Auto 17.4 % (25-40); Mean Corpuscular HGB Conc 33.5 % (30-36); Mean Corpuscular Hemoglobin 31.4 PG (26-34); Mean Corpuscular Volume 93.8 fL (80-100); Monocytes Absolute Auto 700 /uL (0-900); Monocytes Percent Auto 6.3 % (3-14); Neutrophils Absolute Auto 8900 /uL (1500-7000); Neutrophils Percent Auto 74.3 % (50-75); Platelet Count 256 X10^3/uL (150-400); Red Blood Cell Count 4.32 X10^6/uL (4.0-5.2); Red Cell Distribution Width 13.6 % (11.6-14.8); White Blood Cell Count 11.9 X10^3/uL (4.5-11.0)
[2019-01-24 15:40] LABS: D Dimer < 200 ng/mL (<230)
[2019-01-24 15:43] LABS: Alanine Aminotransferase 17 IU/L (9-52); Albumin 4.3 g/dL (3.5-5.0); Albumin Globulin Ratio 1.3 (1.0-2.8); Alkaline Phosphatase 79 U/L (38-126); Aspartate Aminotransferase 21 IU/L (14-36); BUN Creatinine Ratio 15.7 (6-22); Bilirubin Total 0.6 mg/dL (0.2-1.3); Blood Urea Nitrogen 11 mg/dL (7-17); Calcium 9.1 mg/dL (8.4-10.2); Carbon Dioxide 25 mmol/L (22-32); Chloride 104 mmol/L (98-107); Creatine Kinase 79 U/L (30-135); Estimated Glomerular Filt Rate > 60.0 mL/min (>60); Globulin 3.2 g/dL (1.7-4.1); Glucose 82 mg/dL (70-100); HEMOLYSIS < 15 (0-50); Potassium 3.8 mmol/L (3.4-5.1); Sodium 137 mmol/L (137-145); Total Protein 7.5 g/dL (6.3-8.2)
[2019-01-24 15:51] LABS: B Type Natriuretic Peptide < 100 (<100)
[2019-01-24 15:53] LABS: Troponin I < 0.012 ng/mL (0.01-0.034)
[2019-01-24 17:19] VITALS: BP 144/94; PULSE 54; RESP 16; O2SAT 98
== END 2019-01-24 17:20 | disposition home or self-care (01) ==
PROVIDERS: Emergency Provider Nurse Practitioner; PCP Family Medicine
DX: M79.602 Pain in left arm (principal); R60.9 Edema, unspecified; R20.2 Paresthesia of skin; R07.89 Other chest pain
CPT/HCPCS: 36591; 71046; 76882; 80053; 82550; 83880; 84484; 85025; 85379; 93005; 96374; 99282; 99284; J1885